=== PATIENT | female | born 1960 ===

== ENCOUNTER 2019-07-06 17:03 | Emergency (ER) | payer MEDICARE, MEDICAID ==
[~2019-07-06] VITALS: Ht 170.2 cm; Wt 95.1 kg
[2019-07-06 17:40] VITALS: BP 113/73
[2019-07-06 18:18] LABS: BASOPHILS # (AUTO) 0.1 X10'3 (0-0.2); BASOPHILS % (AUTO) 0.9 % (0-1); EOSINOPHILS # (AUTO) 0.1 X10'3 (0-0.9); EOSINOPHILS % (AUTO) 1.6 % (0-6); HEMATOCRIT 45.3 % (35.0-45.0); HEMOGLOBIN 15.4 g/dl (12.0-16.0); LYMPHOCYTES # (AUTO) 2.7 X10'3 (1.1-4.8); LYMPHOCYTES % (AUTO) 38.8 % (21-51); MEAN CORPUSCULAR HEMOGLOBIN 34.3 PG (27.0-31.0); MEAN CORPUSCULAR VOLUME 100.7 FL (78-98); MEAN PLATELET VOLUME 7.7 FL (7.4-10.4); MONOCYTES # (AUTO) 0.7 X10'3 (0-0.9); MONOCYTES % (AUTO) 10.4 % (2-12); NEUTROPHILS # (AUTO) 3.4 X10'3 (1.8-7.7); NEUTROPHILS % (AUTO) 48.3 % (42-75); PLATELET COUNT 233 X10'3 (140-440); RED CELL DISTRIBUTION WIDTH 13.7 % (11.5-14.5)
[2019-07-06 18:25] LABS: ALANINE AMINOTRANSFERASE 43 U/L (12-78); ALBUMIN 3.6 G/DL (3.4-5.0); ALBUMIN/GLOBULIN RATIO 1.1 (1.1-1.5); ALKALINE PHOSPHATASE 106 IU/L (46-116); ANION GAP 13 (8-16); ASPARTATE AMINO TRANSFERASE 20 U/L (10-37); BILIRUBIN,TOTAL 0.2 MG/DL (0.1-1.0); BLOOD UREA NITROGEN 11 MG/DL (7-18); BUN/CREATININE RATIO 12.2 (6.6-38.0); CALCIUM 8.6 MG/DL (8.5-10.1); CHLORIDE 109 MMOL/L (99-107); GLUCOSE 131 MG/DL (70-104); POTASSIUM 3.4 MMOL/L (3.5-5.1); SODIUM 143 MMOL/L (135-145); TOTAL CARBON DIOXIDE 21.5 MMOL/L (24-32); TOTAL PROTEIN 6.8 G/DL (6.4-8.2); eGFR 64 ML/MIN
[2019-07-06 18:39] LABS: CLARITY,URINE CLEAR (Clear); COLOR,URINE YELLOW (Yellow); GLUCOSE, URINE NEGATIVE (Neg); KETONES,URINE NEGATIVE (Neg); LEUKOCYTE ESTERASE ,URINE NEGATIVE (Neg); NITRITES, URINE NEGATIVE (Neg); OCCULT BLOOD,URINE NEGATIVE (Neg); PH,URINE 5.5 (4.8-8.0); PROTEIN,URINE NEGATIVE (Neg); UROBILINOGEN,URINE 0.2 E.U/dL (0.2-1.0)
[2019-07-06 18:42] LABS: UA COLLECTION TYPE CLN CATCH MIDSTREAM
--- NOTE | 2019-07-06 19:49 | NUR ---
ATTEMPTED TO CALL PT BUT NO NUMBER ON FILE. SHE IS NOT IN LOBBY WHEN CALLED.
== END 2019-07-06 22:09 | disposition left against medical advice (07) ==
LOC: ER 17:04
DX: R10.9 Unspecified abdominal pain (principal); Z53.21 Procedure and treatment not carried out due to patient leaving prior to being seen by health care provider
CPT/HCPCS: 36415; 80053; 81003; 85025; 85610